=== PATIENT | male | born 1950 | race Caucasian/White ===

== ENCOUNTER 2017-02-14 22:02 | Emergency (ER) | payer OTHER ==
[2017-02-14] MEDS ORDERED: DILTIAZEM XR 240 MG CAP PO SCH (22:15)
--- NOTE | 2017-02-14 22:17 | EDPHY ---
H & P Time Seen by Provider: 02/14/17 22:12 HPI/ROS: CHIEF COMPLAINT: altered mental status at [facility] HISTORY OF PRESENT ILLNESS: the patient is a 66-year-old man with a history of alcoholism who was at the [facility]. They state that he was acting confused and they are worried that maybe he was having a stroke. The patient is answering all questions appropriately for me and for EMS. He does not have any focal weakness or deficits. No slurred speech. He passed the EMS stroke scale and has an NIH stroke score of 0 here in the emergency department. He is currently sober. He was seen at [facility] yesterday for unknown reasons and then later at the [facility] for intoxication. Today he is sober but began acting confused to them. He is not showing any signs of withdrawal. He is not tachycardic. He is not tremulous. He is here requesting diltiazem for his history of AFib. He has not had a dose since yesterday. He is also asking for gabapentin which he states he usually takes for hypertension. He lives in a assisted house in [place] that he cannot return if he has been drinking. REVIEW OF SYSTEMS: Constitutional: denies: chills, fever, recent illness, recent injury EENTM: denies: blurred vision, double vision, nose congestion Respiratory: denies: cough, shortness of breath Cardiac: denies: chest pain, irregular heart rate, lightheadedness, palpitations Gastrointestinal/Abdominal: denies: abdominal pain, diarrhea, nausea, vomiting, blood streaked stools Genitourinary: denies: dysuria, frequency, hematuria, pain Musculoskeletal: denies: joint pain, muscle pain Skin: denies: lesions, rash, jaundice, bruising Neurological: denies: headache, numbness, paresthesia, tingling, dizziness, weakness Hematologic/Lymphatic: denies: blood clots, easy bleeding, easy bruising Immunologic/allergic: denies: HIV/AIDS, transplant EXAM: GENERAL: Well-appearing, well-nourished and in no acute distress. HEAD: Atraumatic, normocephalic. EYES: Pupils equal round and reactive to light, extraocular movements intact, sclera anicteric, conjunctiva are normal. ENT: TMs normal, nares patent, oropharynx clear without exudates. Moist mucous membranes. NECK: Normal range of motion, supple without lymphadenopathy or JVD. LUNGS: Breath sounds clear to auscultation bilaterally and equal. No wheezes rales or rhonchi. HEART: Regular rate and rhythm without murmurs, rubs or gallops. ABDOMEN: Soft, nontender, normoactive bowel sounds. No guarding, no rebound. No masses appreciated. BACK: No CVA tenderness, no spinal tenderness, step-offs or deformities EXTREMITIES: Normal range of motion, no pitting or edema. No clubbing or cyanosis. NEUROLOGICAL: no tremors, Cranial nerves II through XII grossly intact. Normal speech, normal gait. 5/5 strength, normal movement in all extremities, normal sensation PSYCH: Normal mood, normal affect. SKIN: Warm, dry, normal turgor, no visible rashes or lesions. Source: Patient Exam Limitations: No limitations - Medical/Surgical History Hx Asthma: No Hx Chronic Respiratory Disease: No Hx Diabetes: No Hx Cardiac Disease: No Hx Renal Disease: No Hx Cirrhosis: No Hx Alcoholism: No Other PMH: Atrial fibrillation, hypertension, alcoholism - Family History Significant Family History: No pertinent family hx - Social History Alcohol Use: Heavy Drug Use: None Constitutional: Initial Vital Signs Temperature (C) 37.4 C 02/14/17 22:18 Heart Rate 94 02/14/17 22:18 Respiratory Rate 16 02/14/17 22:18 Blood Pressure 143/111 H 02/14/17 22:18 O2 Sat (%) 95 02/14/17 22:18 O2 Delivery Mode Room Air Allergies/Adverse Reactions: No Known Allergies Allergy (Unverified 02/14/17 22:21) Home Medications: Medication Instructions Recorded Diltiazem 02/14/17 GABAPENTIN 02/14/17 Wellbutrin Xl 02/14/17 Medical Decision Making ED Course/Re-evaluation: the patient does not have any symptoms consistent with a stroke. I will give him a dose of his diltiazem. He states that he has the rest in his backpack at home in his x-'s garage. I will not refill his gabapentin because of its potential for abuse. Patient understands this. Otherwise he has no complaints and will be discharged Differential Diagnosis: Partial list of the Differential diagnosis considered include but were not limited to; intoxication, withdrawal, medication refill and although unlikely based on the history and physical exam, I also considered seizure, stroke, infection, head injury. I discussed these differential diagnoses and the plan with the patient as well as the usual and expected course. The patient understands that the diagnosis is provisional and that in medicine we are not always correct and that further workup is often warranted. Usual and customary warnings were given. All of the patient's questions were answered. The patient was instructed to return to the emergency department should the symptoms at all worsen or return, otherwise to followup with the physician as we discussed. - Data Points Medications Given: Discontinued Medications Diltiazem HCl (Dilacor Xr) 240 mg PO DAILY CHIN Stop: 08/13/17 22:14 Last Admin: 02/14/17 22:36 Dose: 240 mg Departure - Departure Disposition: Home, Routine, Self-Care Clinical Impression: Alcohol abuse Condition: Fair Instructions: Abuse of Alcohol (ED) Referrals: Patient,NotPresent [Unknown] - As per Instructions Dhiraj Fiore MD [Medical Doctor] - As per Instructions
[2017-02-14 22:21] VITALS: RESP 16
[2017-02-14 23:11] VITALS: BP 134/87; PULSE 80; TEMP 98.1; O2SAT 96
== END 2017-02-14 23:07 | disposition home or self-care (01) ==
LOC: EDUNIT#
DX: F10.10 Alcohol abuse, uncomplicated (principal); I10 Essential (primary) hypertension